=== PATIENT | male | born 1955 | race Caucasian/White ===

== ENCOUNTER → 2016-09-21 | Day surgery (SDC) | payer MEDICARE ==
[~2016-09-21] MED LIST: CALAN SR180 MG PO; CEFTIN500 MG PO; HYDROCODON-ACE1 EAC6 PO; LASIX20 MG PO; LIPITOR10 MG PO; ZYLOPRIM100 MG PO
== END | disposition home or self-care (01) ==
LOC: SDC 07:25
DX: N20.0 Calculus of kidney (principal); I10 Essential (primary) hypertension; M10.9 Gout, unspecified; Z79.899 Other long term (current) drug therapy; Z98.49 Cataract extraction status, unspecified eye; Z98.890 Other specified postprocedural states
CPT/HCPCS: C1758; C2617; J2370; J2704; Q9967